=== PATIENT | male | born 1965 | race Caucasian/White ===

== ENCOUNTER 2021-10-09 10:53 | Emergency (ER) | payer OTHER ==
[~2021-10-09 10:53] MED LIST: ACETAMINOPHEN325 MG PO; ASPIRIN EC81 M1 PO; CETIRIZINE HCL10 MG PO; DULERA 200 MCG8.8 GM INH; FLOVENT HFA12 GM INH; IBUPROFEN800 MG PO; K-DUR20 MEQ PO; KEFLEX250 MG PO; LASIX40 MG PO; MUCINEX 600MG600 MG PO; NEXIUM40 MG PO; PRAVACHOL40 MG PO; PRINIVIL20 MG PO; SINGULAIR10 MG PO; SPIRIVA 18MCG18 MCG INH; SYNTHROID25 MCG PO; VENLAFAXINE HCL75 MG PO; VENTOLIN (2.5 MG/3 M INH; VENTOLIN HFA IN18 GM INH
[2021-10-09] MEDS ORDERED: PREDNISONE 20MG20 MG PO (13:08)
== END 2021-10-09 13:35 | disposition home or self-care (01) ==
LOC: FER 10:53
DX: U07.1 COVID-19 (principal); J44.9 Chronic obstructive pulmonary disease, unspecified; E11.9 Type 2 diabetes mellitus without complications; I50.9 Heart failure, unspecified
CPT/HCPCS: 99283; J1100; U0002

== ENCOUNTER 2021-10-11 07:06 | Emergency (ER) | payer OTHER ==
[~2021-10-11 07:06] MED LIST changes: +PREDNISONE 20MG20 MG PO
[2021-10-11 08:30] LABS: BASOPHIL 0.3 % (0-2); EOSINOPHIL 0 % (0-5); HCT 45.5 % (42.0-52.0); HGB 15.1 g/dl (13.2-18.0); LYMPHOCYTE 18.7 % (15-48); MCH 29.4 pg (25.0-31.0); MCHC 33.2 g/dL (32.0-36.0); MCV 88.7 fL (78.0-100.0); MONOCYTE 9.4 % (0-12); MPV 10.2 fL (6.0-9.5); NEUTROPHIL 71.2 % (41-80); NRBC 0; PLT 225 K/uL (150-400); RBC 5.13 M/uL (4.70-6.00); RDW 14.2 % (11.5-14.0); WBC 7.9 K/uL (4.0-10.5)
[2021-10-11 09:15] LABS: BUN/CREAT RATIO (CALC) 17.8 RATIO; CREATININE 0.9 mg/dL (0.67-1.17); POTASSIUM 3.5 mmol/L (3.5-5.1)
== END 2021-10-11 11:08 | disposition home or self-care (01) ==
LOC: FER 07:06
PROVIDERS: Emergency Medicine
DX: U07.1 COVID-19 (principal); J44.9 Chronic obstructive pulmonary disease, unspecified; I10 Essential (primary) hypertension
CPT/HCPCS: 36415; 36600; 71045; 80048; 82803; 85025